=== PATIENT | male | born 1950 | race Caucasian/White ===

== ENCOUNTER 2020-07-19 17:00 | Inpatient (IN) ==
[2020-07-19] MEDS ORDERED: guaiFENesin 600 MG TABCR PO STA (17:15)
[2020-07-19] MEDS ORDERED: SODIUM CHLORIDE 0.9% 500 ML IV ONE (17:15)
[2020-07-19] MEDS ORDERED: methylPREDNISolone 125 MG/2 ML VIAL IV STA (17:15)
[2020-07-19] MEDS ORDERED: ALBUT/IPRATROP 3MG/0.5MG NEB 3 ML VIAL NEB ONE (17:16)
--- NOTE | 2020-07-19 17:31 | XRay Report ---
XR chest 1V portable CLINICAL HISTORY: Atypical chest pain COMPARISON STUDY: No previous studies for comparison. FINDINGS: The patient appears hyperinflated. The heart is the upper limits of normal in size. There i s no overt failure. There are no significant pleural effusions. There is no lobar consolidation.[ IMPRESSION: Hyperinflation. No evidence of focal pulmonary consolidation. ACT 112: Negative or not required by law. Electronically signed by: Samuel Jacinto M.D. 07/19/2020 5:30 PM
[2020-07-19 17:57] LABS: Basophils # (auto) 0.01 K/uL (0-0.2); Basophils % (auto) 0.1 %; Eosinophils # (auto) 0.38 K/uL (0-0.5); Eosinophils % (auto) 4.2 %; Hematocrit (blood only) 46.9 % (42-52); Hemoglobin 16.3 g/dL (14.0-18.0); Immature Granulocytes # (auto) 0.04 K/uL (0.00-0.02); Immature Granulocytes % (auto) 0.4 %; Lymphocytes # (auto) 1.63 K/uL (1.2-3.4); Mean Corpuscular Hemoglobin 31.8 pg (25-34); Mean Corpuscular Hgb Conc 34.8 g/dL (32-36); Mean Corpuscular Volume 91.6 fL (80-100); Mean Platelet Volume 9.3 fL (7.4-10.4); Monocytes # (auto) 0.78 K/uL (0.11-0.59); Monocytes % (auto) 8.6 %; Neutrophils # (auto) 6.22 K/uL (1.4-6.5); Neutrophils % (auto) 68.7 %; Platelet Count 309 K/uL (130-400); RDW Standard Deviation 47.5 fL (36.4-46.3); Red Blood Count 5.12 M/uL (4.7-6.1); White Blood Count 9.06 K/uL (4.8-10.8)
[2020-07-19 18:15] LABS: Alanine Aminotransferase 40 U/L (12-78); Aspartate Aminotransferase 22 U/L (15-37); BUN Creatinine Ratio 18.7 (10-20); Bilirubin Direct 0.1 mg/dl (0-0.2); Blood Urea Nitrogen 20 mg/dl (7-18); Calcium 8.6 mg/dl (8.5-10.1); Carbon Dioxide 31 mmol/L (21-32); Chloride 106 mmol/L (98-107); Est GFR (African American) 83.8; Est GFR (Non-African American) 72.3; Glucose 102 mg/dl (70-99); Lipase 78 U/L (73-393); Magnesium 2.2 mg/dl (1.8-2.4); Potassium 4.1 mmol/L (3.5-5.1); Sodium 139 mmol/L (136-145)
[2020-07-19 18:18] LABS: Alkaline Phosphatase 78 U/L (45-117); Bilirubin,Total 0.5 mg/dl (0.2-1); NT Pro B Type Natriuretic Pept 15 pg/ml (0-900); Phosphorus 2.8 mg/dl (2.5-4.9); Troponin I < 0.015 ng/ml (0-0.045)
[2020-07-19 18:36] LABS: Influenza A virus by PCR Negative (Neg); Influenza B virus by PCR Negative (Neg); RSV by PCR Negative (Neg); SARS CoV2 RNA(COVID-19) InHosp NEGATIVE (Negative)
--- NOTE | 2020-07-19 19:01 | Emergency Department Note ---
Impression & Plan Acute respiratory failure with hypoxia, COPD exacerbation, Current every day smoker ED Provider Note NAME: MILDRED STRONG AGE: 69 SEX: M ARRIVES VIA: Walk-In INFORMANT: Patient, ED PROVIDER(S): Oh Cordon MD CHIEF COMPLAINT: Shortness of breath PLAN: Disposition: Admit MEDICAL DECISION MAKING: The patient is a pleasant 69-year gentleman with a past medical history of longstanding daily smoking but admits to not following with a primary care doctor and many years who presents to the emergency department with worsening cough, congestion and shortness of breath over the past couple weeks acutely worse over the past couple of days in the setting of his report of having worsening respiratory symptoms over the past 2 years. He did not seek medical evaluation during this time presuming it was due to his smoking as well as his environmental exposures at work. He denies any known fevers, nausea, vomiting, diarrhea or symptoms. Denies any known COVID-19 exposures. On arrival the patient is in mild respiratory distress and tachypneic hypoxic in the low 80s on room air which did improve to mid 90s on 4 L nasal cannula with improved work of breathing. He appears clinically dry. EKG without overt acute ischemia. CXR negative with hyperinflation without overt infiltrates. WBC, H/H, platelets wnl. Chemistry without acidosis. Electrolytes unremarkable. LFTs without significant abnormality. Troponin negative/undetectable. BNP wnl. Covid-19 PCR negative. Influenza and RSV PC also negative. Upon re-evaluation the patient continued to feel improved with improved air movement after treatment with IVF hydration, steroids, duoneb, guaifenesin. However, still with diffuse wheezes and so given severe COPD exacerbation he agreed with plan for admission. Case was discussed with Dr. Biswas, [facility] hospitalist, who will evaluate the patient for admission. Triage Nursing notes reviewed and agree them. Prior medical records reviewed Vital Signs: reviewed and remarkable for no significant abnormalities Differential diagnosis: Reactive airway disease, pneumonia, pneumothorax, COPD, CHF, infections, cardiac ischemia, pulmonary embolism, musculoskeletal, gastrointestinal, as well as other pathologies. ER treatment provided: See below. Diagnostics interpreted by me: ECG: NSR, 82 bpm, no ectopy, no overt ST elevation or depression. Cardiac Monitoring: An order for continuous cardiac monitoring was placed and demonstrated NSR, 82 bpm, no ectopy. Laboratory studies: See below Imaging studies: See below Consultation(s): Case was discussed with Dr. Biswas, [facility] hospitalist, who will evaluate the patient for admission. HPI: The patient is a pleasant 69-year gentleman with a past medical history of longstanding daily smoking but admits to not following with a primary care doctor and many years who presents to the emergency department with worsening cough, congestion and shortness of breath over the past couple weeks acutely worse over the past couple of days in the setting of his report of having worsening respiratory symptoms over the past 2 years. He did not seek medical evaluation during this time presuming it was due to his smoking as well as his environmental exposures at work. He denies any known fevers, nausea, vomiting, diarrhea or symptoms. Denies any known COVID-19 exposures. ROS: See above HPI for pertinent positives & negatives. A total of 10 systems reviewed and were otherwise negative. PAST MEDICAL HISTORY:See Below PAST SURGICAL HISTORY:See Below FAMILY HISTORY:See Below SOCIAL HISTORY:See Below HOME MEDICATIONS:See Below ALLERGIES:See Below VITALS:See Below PHYSICAL EXAMINATION: GENERAL: Awake, alert, uncomfortable-appearing, in no distress HENT: Normocephalic, atraumatic. Oropharynx with dry mucous membranes and otherwise unremarkable. EYES: Normal conjunctiva. Sclera non-icteric. NECK: Supple. No nuchal rigidity. FROM. No JVD. RESPIRATORY: Diffuse wheezes with prolonged expiratory phase. Mild respiratory distress with increased work of breathing. CARDIAC: Regular rate, normal rhythm. Extremities warm and well perfused. Pulses equal. ABDOMEN: Soft, non-distended. No tenderness to palpation. No rebound or guarding. No masses. RECTAL: Deferred. MUSCULOSKELETAL: Chest examination reveals no tenderness. The back is symmetrical on inspection without obvious abnormality. There is no CVA tenderness to palpation. No joint edema. LOWER EXTREMITIES: Calves are equal size bilaterally and non-tender. No edema. No discoloration. NEURO: Normal sensorium. No sensory or motor deficits noted. SKIN: No rash or jaundice noted. ED COURSE: Critical Care: I have personally spent greater than 45 minutes of critical care time in the direct management of this patient. This includes bedside care, interpretation of diagnostic studies, and testing, discussion with consultants, patient, and family members, and other required patient management activities. This 45 minutes is in excess of all separately billable procedures. Oh Cordon MD Past Med/Surg History Medical History Current every day smoker Social History Smoking Status: Current every day smoker Tobacco Type: Cigarettes Hx Alcohol Use: No Hx Substance Use: No Preferred Language: Greek Communication Ability: Effective Beliefs That Will Affect Care: None Current Living Situation: Spouse Current Living Situation Comment: lives in one story home Feels Safe at Home: Yes Safety Concerns: Feels Safe At This Time Assistive Devices: Oxygen - Continuous Allergies Allergies Allergy/AdvReac Type Severity Reaction Status Date / Time No Known Allergies Allergy Verified 07/19/20 17:58 Home Meds Home Medications Medication Instructions Recorded Confirmed albuterol sulfate 2.5 mg INHALATION DIRECTED PRN 07/19/20 07/19/20 epinephrine [Primatene Mist] 1 puff INHALATION DIRECTED PRN 07/19/20 07/19/20 fluticasone propionate [Flonase] 1 spray INTRANASAL DAILY 07/19/20 07/19/20 guaifenesin [Mucinex] 600 mg PO DIRECTED PRN 07/19/20 07/19/20 levocetirizine [Xyzal] 5 mg PO DAILY 07/19/20 07/19/20 Results & Data (ED) Vital Signs Vital Signs - 24 hr 07/19/20 17:00 07/19/20 17:01 07/19/20 17:14 Temperature 36.8 C Temperature Source Temporal Artery Scan Pulse Rate 89 63 Pulse Rate [Apical] Pulse Rate from SpO2 Sensor Respiratory Rate 27 H 20 Respiratory Effort / Characteristics Short of Breath Grunting Short of Breath Respiratory Depth Normal Respiratory Pattern Regular Blood Pressure Blood Pressure Mean Pulse Oximetry 91 83 L 97 Oxygen Delivery Method Nasal Cannula Room Air Nasal Cannula Oxygen Flow Rate 2 4 Sepsis Recent Fever Within 48 Hours No Sepsis New/Unexplained Change in Mental Status No Sepsis Action Taken by Nursing No Action Required Oxygen Flow Rate - Titration 4 Pulse Oximetry Post Tiitration 95 07/19/20 17:30 07/19/20 17:51 07/19/20 17:54 Temperature Temperature Source Pulse Rate 84 81 Pulse Rate [Apical] 84 Pulse Rate from SpO2 Sensor 84 83 Respiratory Rate 20 20 19 Respiratory Effort / Characteristics Spontaneous Respiratory Depth Respiratory Pattern Blood Pressure 160/109 H Blood Pressure Mean 126 Pulse Oximetry 98 98 98 Oxygen Delivery Method Nasal Cannula Oxygen Flow Rate 4 Sepsis Recent Fever Within 48 Hours Sepsis New/Unexplained Change in Mental Status Sepsis Action Taken by Nursing Oxygen Flow Rate - Titration Pulse Oximetry Post Tiitration 07/19/20 18:00 07/19/20 18:09 07/19/20 18:10 Temperature Temperature Source Pulse Rate 83 79 82 Pulse Rate [Apical] Pulse Rate from SpO2 Sensor 84 81 82 Respiratory Rate 16 13 11 L Respiratory Effort / Characteristics Respiratory Depth Respiratory Pattern Blood Pressure 149/99 H Blood Pressure Mean 115 Pulse Oximetry 98 98 98 Oxygen Delivery Method Oxygen Flow Rate Sepsis Recent Fever Within 48 Hours Sepsis New/Unexplained Change in Mental Status Sepsis Action Taken by Nursing Oxygen Flow Rate - Titration Pulse Oximetry Post Tiitration 07/19/20 18:30 07/19/20 18:31 07/19/20 19:00 Temperature Temperature Source Pulse Rate 82 85 79 Pulse Rate [Apical] Pulse Rate from SpO2 Sensor 81 83 79 Respiratory Rate 11 L 13 19 Respiratory Effort / Characteristics Respiratory Depth Respiratory Pattern Blood Pressure 131/84 131/83 Blood Pressure Mean 99 99 Pulse Oximetry 97 96 96 Oxygen Delivery Method Oxygen Flow Rate Sepsis Recent Fever Within 48 Hours Sepsis New/Unexplained Change in Mental Status Sepsis Action Taken by Nursing Oxygen Flow Rate - Titration Pulse Oximetry Post Tiitration 07/19/20 19:01 07/19/20 19:30 07/19/20 19:31 Temperature Temperature Source Pulse Rate 84 78 78 Pulse Rate [Apical] Pulse Rate from SpO2 Sensor 85 78 78 Respiratory Rate 18 15 18 Respiratory Effort / Characteristics Respiratory Depth Respiratory Pattern Blood Pressure 143/89 H Blood Pressure Mean 107 Pulse Oximetry 97 96 96 Oxygen Delivery Method Oxygen Flow Rate Sepsis Recent Fever Within 48 Hours Sepsis New/Unexplained Change in Mental Status Sepsis Action Taken by Nursing Oxygen Flow Rate - Titration Pulse Oximetry Post Tiitration 07/19/20 20:00 07/19/20 20:01 07/19/20 20:30 Temperature Temperature Source Pulse Rate 80 81 81 Pulse Rate [Apical] Pulse Rate from SpO2 Sensor 81 80 79 Respiratory Rate 17 16 17 Respiratory Effort / Characteristics Respiratory Depth Respiratory Pattern Blood Pressure 136/84 137/85 Blood Pressure Mean 101 102 Pulse Oximetry 96 96 97 Oxygen Delivery Method Oxygen Flow Rate Sepsis Recent Fever Within 48 Hours Sepsis New/Unexplained Change in Mental Status Sepsis Action Taken by Nursing Oxygen Flow Rate - Titration Pulse Oximetry Post Tiitration 07/19/20 20:31 Temperature Temperature Source Pulse Rate 76 Pulse Rate [Apical] Pulse Rate from SpO2 Sensor 76 Respiratory Rate 14 Respiratory Effort / Characteristics Respiratory Depth Respiratory Pattern Blood Pressure Blood Pressure Mean Pulse Oximetry 97 Oxygen Delivery Method Oxygen Flow Rate Sepsis Recent Fever Within 48 Hours Sepsis New/Unexplained Change in Mental Status Sepsis Action Taken by Nursing Oxygen Flow Rate - Titration Pulse Oximetry Post Tiitration Laboratory Data Attestation: I reviewed the patient's lab results. Result diagrams: 07/19/20 17:29 07/19/20 17:29 Lab Results 07/19/20 07/19/20 07/19/20 Range/Units 17:29 17:29 17:45 WBC 9.06 (4.8-10.8) K/uL RBC 5.12 (4.7-6.1) M/uL Hgb 16.3 (14.0-18.0) g/dL Hct 46.9 (42-52) % MCV 91.6 (80-100) fL MCH 31.8 (25-34) pg MCHC 34.8 (32-36) g/dL RDW Std Deviation 47.5 H (36.4-46.3) fL RDW Coeff of Lai 14.0 (11.5-14.5) % Plt Count 309 (130-400) K/uL MPV 9.3 (7.4-10.4) fL Immature Gran % (Auto) 0.4 % Neut % (Auto) 68.7 % Lymph % (Auto) 18.0 % Coleman % (Auto) 8.6 % Eos % (Auto) 4.2 % Baso % (Auto) 0.1 % Neut # (Auto) 6.22 (1.4-6.5) K/uL Lymph # (Auto) 1.63 (1.2-3.4) K/uL Coleman # (Auto) 0.78 H (0.11-0.59) K/uL Eos # (Auto) 0.38 (0-0.5) K/uL Baso # (Auto) 0.01 (0-0.2) K/uL Immature Gran # (Auto) 0.04 H (0.00-0.02) K/uL Sodium 139 (136-145) mmol/L Potassium 4.1 (3.5-5.1) mmol/L Chloride 106 (98-107) mmol/L Carbon Dioxide 31 (21-32) mmol/L Anion Gap 2.0 L (3-11) BUN 20 H (7-18) mg/dl Creatinine 1.06 (0.6-1.4) mg/dl Est Cr Clr Drug Dosing Not Reportable Est GFR ( Amer) 83.8 Est GFR (Non-Af Amer) 72.3 BUN/Creatinine Ratio 18.7 (10-20) Glucose 102 H (70-99) mg/dl Calcium 8.6 (8.5-10.1) mg/dl Phosphorus 2.8 (2.5-4.9) mg/dl Magnesium 2.2 (1.8-2.4) mg/dl Total Bilirubin 0.5 (0.2-1) mg/dl Direct Bilirubin 0.1 (0-0.2) mg/dl AST 22 (15-37) U/L ALT 40 (12-78) U/L Alkaline Phosphatase 78 (45-117) U/L Troponin I < 0.015 (0-0.045) ng/ml NT-Pro-B Natriuret Pep 15 (0-900) pg/ml Total Protein 8.0 (6.4-8.2) gm/dl Albumin 4.0 (3.4-5.0) gm/dl Globulin 4.0 (2.5-4.0) gm/dl Albumin/Globulin Ratio 1.0 (0.9-2) Lipase 78 (73-393) U/L COVID-19 Eval Order CovFluRsv at [facility] SARS-CoV-2 (PCR) (Negative) Influenza Type A (PCR) (Neg) Influenza Type B (PCR) (Neg) RSV (RT-PCR) (Neg) 07/19/20 Range/Units 17:45 WBC (4.8-10.8) K/uL RBC (4.7-6.1) M/uL Hgb (14.0-18.0) g/dL Hct (42-52) % MCV (80-100) fL MCH (25-34) pg MCHC (32-36) g/dL RDW Std Deviation (36.4-46.3) fL RDW Coeff of Lai (11.5-14.5) % Plt Count (130-400) K/uL MPV (7.4-10.4) fL Immature Gran % (Auto) % Neut % (Auto) % Lymph % (Auto) % Coleman % (Auto) % Eos % (Auto) % Baso % (Auto) % Neut # (Auto) (1.4-6.5) K/uL Lymph # (Auto) (1.2-3.4) K/uL Coleman # (Auto) (0.11-0.59) K/uL Eos # (Auto) (0-0.5) K/uL Baso # (Auto) (0-0.2) K/uL Immature Gran # (Auto) (0.00-0.02) K/uL Sodium (136-145) mmol/L Potassium (3.5-5.1) mmol/L Chloride (98-107) mmol/L Carbon Dioxide (21-32) mmol/L Anion Gap (3-11) BUN (7-18) mg/dl Creatinine (0.6-1.4) mg/dl Est Cr Clr Drug Dosing Est GFR ( Amer) Est GFR (Non-Af Amer) BUN/Creatinine Ratio (10-20) Glucose (70-99) mg/dl Calcium (8.5-10.1) mg/dl Phosphorus (2.5-4.9) mg/dl Magnesium (1.8-2.4) mg/dl Total Bilirubin (0.2-1) mg/dl Direct Bilirubin (0-0.2) mg/dl AST (15-37) U/L ALT (12-78) U/L Alkaline Phosphatase (45-117) U/L Troponin I (0-0.045) ng/ml NT-Pro-B Natriuret Pep (0-900) pg/ml Total Protein (6.4-8.2) gm/dl Albumin (3.4-5.0) gm/dl Globulin (2.5-4.0) gm/dl Albumin/Globulin Ratio (0.9-2) Lipase (73-393) U/L COVID-19 Eval Order SARS-CoV-2 (PCR) NEGATIVE (Negative) Influenza Type A (PCR) Negative (Neg) Influenza Type B (PCR) Negative (Neg) RSV (RT-PCR) Negative (Neg) Administered Medications Nicotine (Nicotine 21 Mg/24 Hr Tdsy) 21 mg TD DAILY ELTON Stop: 08/18/20 23:09 Last Admin: 07/19/20 23:42 Dose: 21 mg Documented by: [id number] Discontinued Medications Albuterol (Albut/Ipratrop 3mg/0.5mg Neb 3 Ml Vial) 12 ml NEB ONE ONE Stop: 07/19/20 17:17 Last Admin: 07/19/20 17:50 Dose: 12 ml Documented by: [id number] Guaifenesin (Guaifenesin 600 Mg Tabcr) 600 mg PO NOW STA Stop: 07/19/20 17:16 Last Admin: 07/19/20 19:12 Dose: 600 mg Documented by: [id number] Sodium Chloride (Nss) 500 mls @ 999 mls/hr IV .Q31M ONE Stop: 07/19/20 17:45 Last Infusion: 07/19/20 19:44 Dose: 0 mls/hr Documented by: [id number] Admin: 07/19/20 19:13 Dose: 999 mls/hr Documented by: [id number] Doxycycline Hyclate 100 mg/ (Dextrose) 110 mls @ 50 mls/hr IV NOW STA Stop: 07/19/20 21:41 Last Infusion: 07/19/20 22:37 Dose: 0 mls/hr Documented by: [id number] Admin: 07/19/20 20:14 Dose: 50 mls/hr Documented by: [id number] Methylprednisolone (Methylprednisolone 125 Mg/2 Ml Vial) 125 mg IV NOW STA Stop: 07/19/20 17:16 Last Admin: 07/19/20 19:12 Dose: 125 mg Documented by: [id number] Imaging Data Radiologist's Impression: Chest X-Ray 07/19/20 17:14 XR chest 1V portable CLINICAL HISTORY: Atypical chest pain COMPARISON STUDY: No previous studies for comparison. FINDINGS: The patient appears hyperinflated. The heart is the upper limits of normal in size. There is no overt failure. There are no significant pleural effusions. There is no lobar consolidation.[ IMPRESSION: Hyperinflation. No evidence of focal pulmonary consolidation. ACT 112: Negative or not required by law. Electronically signed by: Samuel Jacinto M.D. 07/19/2020 5:30 PM Discharge Plan Visit Data Chief Complaint: Shortness of Breath/Dyspnea Stated Complaint: [id number] ED Provider: Oh Cordon Discharge Problem: Acute respiratory failure with hypoxia, COPD exacerbation, Current every day smoker Patient Disposition: Admitted As Inpatient Discharge Instructions Interventions: ED Discharge Assessment Last Done: 07/19/20 22:00
[2020-07-19] MEDS ORDERED: DOXYCYCLINE HYCLATE 100 MG in DEXTROSE 5% 100 ML IV STA (19:30)
[2020-07-19] MEDS ORDERED: NITROGLYCERIN SL 0.4 MG/TAB TAB SL PRN (22:37)
[2020-07-19] MEDS ORDERED: guaiFENesin/CODEINE 100MG/10MG 5ML UDC PO PRN (22:37)
[2020-07-19] MEDS ORDERED: ALBUT/IPRATROP 3MG/0.5MG NEB 3 ML VIAL NEB PRN (22:37)
[2020-07-19] MEDS ORDERED: ACETAMINOPHEN 325 MG TAB PO PRN (22:37)
[2020-07-19] MEDS ORDERED: POLYETHYLENE (MIRALAX) 17 GM PACK PO PRN (22:37)
--- NOTE | 2020-07-19 23:25 | History and Physical Report ---
DATE OF ADMISSION: 07/19/2020 CHIEF COMPLAINT: Shortness of breath and cough. HISTORY OF PRESENT ILLNESS: A 69-year-old male with no significant past medical history, did not go to doctors for the last 40 years as per the patient, who just had a teleconference with physician for his shortness of breath in last January and at that time he was prescribed prednisone and antibiotic, now comes because of shortness of breath, cough going on for the last 2-3 weeks. The patient states since last 2-3 years, he is having trouble with his breathing. 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 He also smokes 1 pack of cigarettes a day for the last 40 years. The cough and shortness of breath got worse since last 2-3 weeks and was feeling very short of breath, coughing, bringing up some whitish phlegm. Denies any fever, chills. Has some chest tightness. No headache, no blurred vision, no earache. Had some runny nose from his sinuses. No sore throat, no loss of sense of smell or taste. Appetite is okay. No dysphagia, no nausea, no abdominal pain, no diarrhea or constipation, no blood in stools or black stools. Normal bladder movements. No hematuria. No rash. He was saturating 83% when he came in, currently saturating at 98% on 4 liters. His is in the room and says for the last several days he is using his 's inhalers and nebs at home. ALLERGIES: No known drug allergies. PAST MEDICAL HISTORY: None as per patient. PAST SURGICAL HISTORY: None. MEDICATIONS: Only [id number] medications. Currently using his 's inhalers and nebs. FAMILY HISTORY: Mother has diabetes and heart failure. SOCIAL HISTORY: , smokes 1 pack a day for more than 40 years. Denies alcohol use, denies any drug use. REVIEW OF SYMPTOMS: As per HPI. Rest of review of systems negative. PHYSICAL EXAMINATION: GENERAL: The patient is obese, not in acute distress. VITAL SIGNS: Temperature 36.8, pulse 79, respiratory rate 13, blood pressure 114/99, oxygen 98% on 4 liters, was 83% on room air. HEENT: No pallor, no icterus. Oral mucosa somewhat dry. NECK: No JVD. No neck masses. CARDIOVASCULAR: S1, S2 heard, irregular rate and rhythm, no murmur, no gallop. RESPIRATORY SYSTEM: Normal AP diameter. No accessory muscle use. Diminished breath sounds. No wheezing, no crackles. ABDOMEN: Soft, bowel sounds present, nontender. No distention. CENTRAL NERVOUS SYSTEM: Cranial nerves II-XII grossly intact. Nonfocal. EXTREMITIES: Mild pedal edema present, no erythema seen. LABORATORY DATA: WBC 9, hemoglobin 15.3, hematocrit 40.9, platelets 309. Sodium 139, potassium 4.1, chloride 106, bicarbonate 31, BUN 20, creatinine 1.06, serum glucose 102, calcium 8.6, phosphorus 2.8, magnesium 2.2, total bilirubin 0.5, direct bilirubin 0.1, AST 22, ALT 40, alkaline phosphatase 78. Troponin I less than 0.015. BNP 15. Lipase 78. SARS-CoV-2 PCR negative. Influenza A and B PCR negative, RSV PCR negative. IMAGING: Chest x-ray, no acute findings, hyperinflation. EKG: Normal sinus rhythm, rate of 82, no acute ST changes seen. ASSESSMENT AND PLAN: This is a 69-year-old male who presents with ongoing shortness of breath, got worse since last few days. 1. Copd exacerbation. Hypoxia. ongoing smoking. Received steroids and doxycycline, nebs in the ER, continue with IV Solu-Medrol 40 t.i.d., DuoNebs around the clock and p.r.n., p.o. doxycycline. Monitor in the med tele. Two step home oxygen prior to discharge. Follow up with family doctor or Pulmonary. 2. Chest tightness, possibly from chronic obstructive pulmonary disease flare, Troponin and , EKG unremarkable. Follow the repeat EKG, repeat troponins, and also follow echocardiogram . Monitor in the med/tele 3. lower extremity edema mild. Follow echo. Will also check lipid profile and HbA1c levels and a.m. labs. 4. Tobacco abuse, needs counseling. 5. Deep venous thrombosis prophylaxis, Lovenox. DISPOSITION: Admit to med tele. Expect discharge home and follow with family doctor. PT and OT prior to discharge. visitor services assistant to help with discharge planning. [place]
[2020-07-19] MEDS ORDERED: PNEUMOCOCCAL ADMINISTRATION CHARGE ONE (23:26)
[2020-07-19] MEDS ORDERED: INFLUENZA ADMINISTRATION CHARGE ONE (23:26)
[2020-07-19] MEDS ORDERED: INFLUENZA VACCINE HIGH DOSE 65+ 0.7 ML SYR IM ONE (23:26)
[2020-07-19] MEDS ORDERED: PNEUMOCOCCAL POLYSACCHARIDES 25 MCG/0.5 ML VIAL/SYR IM ONE (23:26)
[2020-07-19] MEDS: NICOTINE 21 MG/24 HR TDSY TD SCH (23:42)
[2020-07-20 06:25] LABS: Hematocrit (blood only) 44.7 % (42-52); Hemoglobin 15.6 g/dL (14.0-18.0); Immature Granulocytes # (auto) 0.04 K/uL (0.00-0.02); Immature Granulocytes % (auto) 0.5 %; Lymphocytes # (auto) 0.74 K/uL (1.2-3.4); Lymphocytes % (auto) 8.8 %; Mean Corpuscular Hemoglobin 31.7 pg (25-34); Mean Corpuscular Hgb Conc 34.9 g/dL (32-36); Mean Corpuscular Volume 90.9 fL (80-100); Mean Platelet Volume 9.6 fL (7.4-10.4); Monocytes # (auto) 0.14 K/uL (0.11-0.59); Monocytes % (auto) 1.7 %; Neutrophils # (auto) 7.47 K/uL (1.4-6.5); Platelet Count 301 K/uL (130-400); RDW Coefficient of Variation 13.9 % (11.5-14.5); RDW Standard Deviation 46.7 fL (36.4-46.3); Red Blood Count 4.92 M/uL (4.7-6.1); White Blood Count 8.39 K/uL (4.8-10.8)
[2020-07-20 06:33] LABS: Prothrombin Time 10.6 Seconds (9.0-12.0)
[2020-07-20 06:45] LABS: BUN Creatinine Ratio 19.6 (10-20); Blood Urea Nitrogen 19 mg/dl (7-18); Calcium 8.7 mg/dl (8.5-10.1); Carbon Dioxide 25 mmol/L (21-32); Chloride 104 mmol/L (98-107); Cholesterol 256 mg/dl (0-200); Creatinine Clr Calc Pharmacy 84.6 ml/min; Est GFR (African American) 94.4; Est GFR (Non-African American) 81.5; Glucose 141 mg/dl (70-99); Magnesium 2.2 mg/dl (1.8-2.4); Potassium 4.1 mmol/L (3.5-5.1); Sodium 136 mmol/L (136-145); Triglycerides 62 mg/dl (0-150); VLDL Cholesterol 12 mg/dl
[2020-07-20 06:49] LABS: Chol HDL Ratio 5; HDL Cholesterol 47 mg/dl; LDL Cholesterol Calculated 197 mg/dl; Troponin I < 0.015 ng/ml (0-0.045)
[2020-07-20] MEDS: ALBUT/IPRATROP 3MG/0.5MG NEB 3 ML VIAL NEB SCH ×4 (07:13→19:23)
[2020-07-20] MEDS ORDERED: PERFLUTREN LIPID MICROSPHERE (DEFINITY) IV ONE (07:57)
[2020-07-20] MEDS: methylPREDNISolone 40 MG in SYRINGE 0 ML IV SCH ×3 (08:33→21:08)
[2020-07-20] MEDS: NICOTINE 21 MG/24 HR TDSY TD SCH (08:33)
[2020-07-20] MEDS: DOXYCYCLINE HYCLATE 100 MG CAP PO SCH ×2 (08:33→21:07)
[2020-07-20] MEDS: ENOXAPARIN INJ 40 MG/0.4 ML SYR SQ SCH (08:33)
[2020-07-20] MEDS ORDERED: COUGH DROP (SUGAR FREE) LOZ 24 LOZ/1 BOX BUCCAL ONE (08:45)
--- NOTE | 2020-07-20 21:55 | Electrocardiogram Report ---
Test Reason : Blood Pressure : / mmHG Vent. Rate : 082 BPM Atrial Rate : 082 BPM P-R Int : 160 ms QRS Dur : 080 ms QT Int : 376 ms P-R-T Axes : 077 064 053 degrees QTc Int : 439 ms Poor data quality, interpretation may be adversely affected Normal sinus rhythm Normal ECG No previous ECGs available Confirmed by Don Smith ([id number]) on 07/20/2020 9:54:57 PM Referred By: REFERRED SELF Confirmed By:Don Smith
--- NOTE | 2020-07-20 22:50 | Electrocardiogram Report ---
Test Reason : Blood Pressure : / mmHG Vent. Rate : 092 BPM Atrial Rate : 092 BPM P-R Int : 178 ms QRS Dur : 080 ms QT Int : 358 ms P-R-T Axes : 073 041 057 degrees QTc Int : 442 ms Normal sinus rhythm Anterior infarct , age undetermined Abnormal ECG When compared with ECG of 19-JUL-2020 17:24, (unconfirmed) No significant change was found Confirmed by Don Smith ([id number]) on 07/20/2020 10:50:26 PM Referred By: REFERRED SELF Confirmed By:Don Smith
[2020-07-21 06:56] LABS: Estimated Average Glucose 126 mg/dl
[2020-07-21] MEDS: ALBUT/IPRATROP 3MG/0.5MG NEB 3 ML VIAL NEB SCH ×4 (07:37→19:14)
--- NOTE | 2020-07-21 07:59 | Hospitalist Progress Note ---
Date of Service July 20, 2020 Assessment & Plan (1) Acute respiratory failure with hypoxia: (2) COPD exacerbation: (3) Current every day smoker: This is a 69-year-old male who presents with ongoing shortness of breath, got worse since last few days. 1. COPD exacerbation. Hypoxia. ongoing smoking. Received steroids and doxycycline, nebs in the ER, continue with IV Solu-Medrol 40 t.i.d., DuoNebs around the clock and p.r.n., p.o. doxycycline. Monitor in the med tele. Two step home oxygen prior to discharge. Follow up with family doctor and Pulmonary. Patient will need PFTs as outpt. 2. Chest tightness, possibly from chronic obstructive pulmonary disease flare, EKG unremarkable. repeat EKG -normal sinus rhythm, anterior infarct, age undetermined, no change from previous. Troponins - negative Echocardiogram obtained -no significant valvular pathology. Left ventricle is normal in size. Left ventricular systolic function is normal. EF 50 to 55%. LV wall motion is normal. RV systolic function is normal. Left atrial size is normal. Right atrial size is normal. Monitor in the med/tele 3. lower extremity edema mild. Follow echo. Will also check lipid profile and HbA1c levels and a.m. labs. 4. Tobacco abuse, needs counseling. DVT ppx:Lovenox. DISPOSITION: telemetry Expect discharge home and follow with family doctor. PT and OT prior to discharge. customer technical services manager to help with discharge planning. Admission and Anticipated Discharge Date Admission Date: July 19, 2020 Subjective Patient seen in follow-up of hypoxia, patient is still on 3 L of oxygen, likely secondary to COPD Currently he says he feels better and breathing better Reports he was using inhalers of his , when he was at home He does not follow much with physicians Denies fevers, chills, chest pain, abdominal pain nausea or vomiting Review of Systems Review of Systems: All systems reviewed & are unremarkable except as noted in HPI & below Constitutional: no fever and no chills Respiratory: + cough and + dyspnea (improved) Cardiovascular: no chest pain and no palpitations Gastrointestinal: no abdominal pain, no nausea and no vomiting Physical Exam Physical Exam: GENERAL: The patient is obese, not in acute distress. HEENT: NC/AT, No pallor, no icterus. Oral mucosa somewhat dry. NECK: No JVD. No neck masses. CARDIOVASCULAR: S1, S2 heard, irregular rate and rhythm, no murmur, no gallop. RESPIRATORY: Normal AP diameter. No accessory muscle use. on 3L of NC, +loud diffuse wheezes, no crackles ABDOMEN: Soft, bowel sounds present, obese, nontender. No distention. NEURO: Alert and oriented x3, no facial asymmetry, speech fluent, moves all 4 extremities EXTREMITIES: Mild pedal edema present, no erythema seen. SKIN: warm, dry, no rashes Results & Data Results & Data ([facility]) Vital Signs (Past 12 Hours) Vital Signs Temp Pulse Pulse Resp BP Pulse Ox 07/21/20 00:34 88 07/20/20 23:11 36.4 C L 92 H 18 152/95 H 94
--- NOTE | 2020-07-21 08:02 | Hospitalist Progress Note ---
Date of Service July 21, 2020 Assessment & Plan (1) Acute respiratory failure with hypoxia: (2) COPD exacerbation: (3) Current every day smoker: This is a 69-year-old male who presents with ongoing shortness of breath, got worse since last few days. 1. COPD exacerbation. Hypoxia. ongoing smoking. Received steroids and doxycycline, nebs in the ER, continued with IV Solu-Medrol 40 t.i.d.,will decrease to BID DuoNebs around the clock and p.r.n., p.o. doxycycline. Monitor in the med tele. Two step home oxygen prior to discharge. Follow up with family doctor and Pulmonary. Patient will need PFTs as outpt. Allergic rhinitis -Patient reports rhinorrhea, and also watery eyes - reports hx of allergies, at home uses flonase -We will provide Zyrtec, Flonase - cont. to monitor 2. Chest tightness, possibly from chronic obstructive pulmonary disease flare, EKG unremarkable. repeat EKG -normal sinus rhythm, anterior infarct, age undetermined, no change from previous. Troponins - negative Echocardiogram obtained -no significant valvular pathology. Left ventricle is normal in size. Left ventricular systolic function is normal. EF 50 to 55%. LV wall motion is normal. RV systolic function is normal. Left atrial size is normal. Right atrial size is normal. Monitor in the med/tele Now resolved 3. Lower extremity edema mild. echo as above Will also check lipid profile and HbA1c levels and a.m. labs. lipid panel - total cholesterol 256, LDL 197, HDL 47, triglycerides 62 Hemoglobin A1c, 6.0% 4. Tobacco abuse, needs counseling. DVT ppx:Lovenox. DISPOSITION: telemetry Expect discharge home and follow with family doctor. PT and OT prior to discharge. conference services manager to help with discharge planning. Admission and Anticipated Discharge Date Admission Date: July 19, 2020 Subjective Patient seen in follow-up of hypoxia, patient is now on 2Ldown from 3 L of oxygen, likely secondary to COPD Currently he says he feels better and breathing better However says his allergies are bothering him, has rhinorrhea and also his eyes are watery, reports that he gets coughing spells from drainage to his throat and then he feels short of breath Reports he was using inhalers of his , when he was at home He does not follow much with physicians Denies fevers, chills, chest pain, abdominal pain nausea or vomiting Review of Systems Review of Systems: All systems reviewed & are unremarkable except as noted in HPI & below Constitutional: no fever and no chills Respiratory: + cough and + dyspnea (improved) Cardiovascular: no chest pain and no palpitations Gastrointestinal: no abdominal pain, no nausea and no vomiting Physical Exam Physical Exam: GENERAL: The patient is obese, not in acute distress. HEENT: NC/AT, No pallor, no icterus. Oral mucosa somewhat dry. NECK: No JVD. No neck masses. CARDIOVASCULAR: S1, S2 heard, irregular rate and rhythm, no murmur, no gallop. RESPIRATORY: Normal AP diameter. No accessory muscle use. on 2L of NC, somewhat diminished breath sounds,+mild wheezing (improved), no crackles ABDOMEN: Soft, bowel sounds present, obese, nontender. No distention. NEURO: Alert and oriented x3, no facial asymmetry, speech fluent, moves all 4 extremities EXTREMITIES: Mild pedal edema present, no erythema seen. SKIN: warm, dry, no rashes Results & Data Results & Data ([facility]) Vital Signs (Past 12 Hours) Vital Signs Temp Pulse Pulse Resp BP Pulse Ox 07/21/20 08:00 36.4 C L 83 16 135/80 97 07/21/20 07:38 84 18 95 07/21/20 03:36 87 22 94 07/21/20 03:25 36.4 C L 90 20 153/85 H 90 07/21/20 00:34 88 07/20/20 23:11 36.4 C L 92 H 18 152/95 H 94 Laboratory Results 07/21/20 07/21/20 07/20/20 Range/Units 08:04 08:04 05:45 WBC 21.68 H (4.8-10.8) K/uL RBC 4.91 (4.7-6.1) M/uL Hgb 15.5 (14.0-18.0) g/dL Hct 44.9 (42-52) % MCV 91.4 (80-100) fL MCH 31.6 (25-34) pg MCHC 34.5 (32-36) g/dL RDW Std Deviation 48.5 H (36.4-46.3) fL RDW Coeff of Lai 14.4 (11.5-14.5) % Plt Count 314 (130-400) K/uL MPV 10.0 (7.4-10.4) fL Sodium 137 (136-145) mmol/L Potassium 4.3 (3.5-5.1) mmol/L Chloride 103 (98-107) mmol/L Carbon Dioxide 29 (21-32) mmol/L Anion Gap 5.0 (3-11) BUN 27 H (7-18) mg/dl Creatinine 0.99 (0.6-1.4) mg/dl Est Cr Clr Drug Dosing 80.9 ml/min Est GFR ( Amer) 91.0 Est GFR (Non-Af Amer) 78.5 BUN/Creatinine Ratio 26.8 H (10-20) Glucose 111 H (70-99) mg/dl Estimat Average Glucose 126 mg/dl Hemoglobin A1c 6.0 H (4.5-5.6) % Calcium 9.2 (8.5-10.1) mg/dl Phosphorus 3.1 (2.5-4.9) mg/dl Magnesium 2.7 H (1.8-2.4) mg/dl Specimen Hemolysis Medications Administered Current Inpatient Medications Acetaminophen (Acetaminophen 325 Mg Tab) 650 mg PO Q4H PRN PRN Reason: Pain or Fever Stop: 08/18/20 22:36 Albuterol (Albut/Ipratrop 3mg/0.5mg Neb 3 Ml Vial) 3 ml NEB QIDR [facility] Stop: 08/19/20 06:59 Last Admin: 07/21/20 07:37 Dose: 3 ml Documented by: Albuterol (Albut/Ipratrop 3mg/0.5mg Neb 3 Ml Vial) 3 ml NEB Q4R PRN PRN Reason: Shortness Of Breath Or Wheezing Stop: 08/18/20 22:36 Last Admin: 07/21/20 03:35 Dose: 3 ml Documented by: Doxycycline Hyclate (Doxycycline Hyclate 100 Mg Cap) 100 mg PO BID [facility] Stop: 07/27/20 08:59 Last Admin: 07/20/20 21:07 Dose: 100 mg Documented by: Enoxaparin Sodium (Enoxaparin Inj 40 Mg/0.4 Ml Syr) 40 mg SQ Q24H [facility] Stop: 08/19/20 08:59 Last Admin: 07/20/20 08:33 Dose: 40 mg Documented by: Guaifenesin/Codeine Phosphate (Guaifenesin/Codeine 100mg/10mg 5ml Udc) 5 ml PO Q6H PRN PRN Reason: Cough Stop: 08/18/20 22:36 Methylprednisolone 40 mg/ (Syringe) 0.64 mls @ 1.5 mls/min IV TID [facility] Stop: 08/19/20 08:59 Last Admin: 07/20/20 21:08 Dose: 1.5 mls/min Documented by: Miscellaneous (Remove Nicoderm Patch) 1 ea N/A DAILY@0806 [facility] Stop: 08/19/20 08:58 Last Admin: 07/20/20 08:43 Dose: 1 ea Documented by: Nicotine (Nicotine 21 Mg/24 Hr Tdsy) 21 mg TD DAILY [facility] Stop: 08/18/20 23:09 Last Admin: 07/20/20 08:33 Dose: 21 mg Documented by: Nitroglycerin (Nitroglycerin Sl 0.4 Mg/Tab Tab) 0.4 mg SL UD PRN PRN Reason: Chest Pain Stop: 08/18/20 22:36 Polyethylene Glycol (Polyethylene (Miralax) 17 Gm Pack) 17 gm PO DAILY PRN PRN Reason: Constipation Stop: 08/18/20 22:36
[2020-07-21] MEDS: DOXYCYCLINE HYCLATE 100 MG CAP PO SCH ×2 (08:51→20:31)
[2020-07-21] MEDS: methylPREDNISolone 40 MG in SYRINGE 0 ML IV SCH ×3 (08:51→20:31)
[2020-07-21] MEDS: ENOXAPARIN INJ 40 MG/0.4 ML SYR SQ SCH (08:52)
[2020-07-21] MEDS: NICOTINE 21 MG/24 HR TDSY TD SCH (08:52)
[2020-07-21 09:06] LABS: Hematocrit (blood only) 44.9 % (42-52); Hemoglobin 15.5 g/dL (14.0-18.0); Mean Corpuscular Hemoglobin 31.6 pg (25-34); Mean Corpuscular Hgb Conc 34.5 g/dL (32-36); Mean Corpuscular Volume 91.4 fL (80-100); Platelet Count 314 K/uL (130-400); RDW Coefficient of Variation 14.4 % (11.5-14.5); RDW Standard Deviation 48.5 fL (36.4-46.3); Red Blood Count 4.91 M/uL (4.7-6.1); White Blood Count 21.68 K/uL (4.8-10.8)
[2020-07-21 09:07] LABS: BUN Creatinine Ratio 26.8 (10-20); Calcium 9.2 mg/dl (8.5-10.1); Creatinine Clr Calc Pharmacy 80.9 ml/min; Est GFR (Non-African American) 78.5; Magnesium 2.7 mg/dl (1.8-2.4); Phosphorus 3.1 mg/dl (2.5-4.9); Potassium 4.3 mmol/L (3.5-5.1)
[2020-07-21] MEDS ORDERED: SODIUM CHLORIDE 0.65% NA SOLN 45 ML (OCEAN) ONE (12:00)
[2020-07-21] MEDS ORDERED: COUGH DROP (SUGAR FREE) LOZ 24 LOZ/1 BOX BUCCAL STA (12:05)
[2020-07-21] MEDS: FAMOTIDINE 20 MG TAB PO SCH (14:31)
[2020-07-21] MEDS: PANTOprazole 40 MG TAB PO SCH (14:31)
[2020-07-21] MEDS: CETIRIZINE HCL 10 MG TABLET PO SCH (14:31)
[2020-07-21] MEDS: FLUTICASONE PROPIONATE NA SPR 16 GM BTL NAE SCH (20:31)
[2020-07-22 06:50] LABS: Hematocrit (blood only) 47.6 % (42-52); Hemoglobin 16.1 g/dL (14.0-18.0); Mean Corpuscular Hemoglobin 30.9 pg (25-34); Mean Corpuscular Hgb Conc 33.8 g/dL (32-36); Mean Corpuscular Volume 91.4 fL (80-100); Mean Platelet Volume 9.7 fL (7.4-10.4); Platelet Count 263 K/uL (130-400); RDW Coefficient of Variation 14.4 % (11.5-14.5); RDW Standard Deviation 48.8 fL (36.4-46.3); Red Blood Count 5.21 M/uL (4.7-6.1)
[2020-07-22] MEDS: ALBUT/IPRATROP 3MG/0.5MG NEB 3 ML VIAL NEB SCH ×2 (07:15→10:57)
[2020-07-22 07:25] LABS: BUN Creatinine Ratio 29.9 (10-20); Calcium 9.1 mg/dl (8.5-10.1); Creatinine Clr Calc Pharmacy 86.7 ml/min; Est GFR (African American) 99.4; Est GFR (Non-African American) 85.8; Magnesium 2.7 mg/dl (1.8-2.4); Potassium 4.4 mmol/L (3.5-5.1)
--- NOTE | 2020-07-22 08:21 | Hospitalist Progress Note ---
Date of Service July 22, 2020 Assessment & Plan (1) Acute respiratory failure with hypoxia: (2) COPD exacerbation: (3) Current every day smoker: This is a 69-year-old male who presents with ongoing shortness of breath, got worse since last few days. 1. COPD exacerbation. Hypoxia. ongoing smoking. Received steroids and doxycycline, nebs in the ER, continued with IV Solu-Medrol 40 t.i.d., decreased to BID DuoNebs around the clock and p.r.n., p.o. doxycycline. Monitor in the med tele. Two step home oxygen prior to discharge. Follow up with family doctor and Pulmonary. Patient will need PFTs as outpt. Will DC on doxy and prednisone Allergic rhinitis -Patient reports rhinorrhea, and also watery eyes - reports hx of allergies, at home uses flonase -We will provide Zyrtec, Flonase - cont. to monitor 2. Chest tightness, possibly from chronic obstructive pulmonary disease flare, EKG unremarkable. repeat EKG -normal sinus rhythm, anterior infarct, age undetermined, no change from previous. Troponins - negative Echocardiogram obtained -no significant valvular pathology. Left ventricle is normal in size. Left ventricular systolic function is normal. EF 50 to 55%. LV wall motion is normal. RV systolic function is normal. Left atrial size is normal. Right atrial size is normal. Monitor in the med/tele Now resolved 3. Lower extremity edema mild. echo as above Will also check lipid profile and HbA1c levels and a.m. labs. lipid panel - total cholesterol 256, LDL 197, HDL 47, triglycerides 62 Hemoglobin A1c, 6.0% Follow up as outpt 4. Tobacco abuse - counseling DVT ppx:Lovenox. DISPOSITION: telemetry Expect discharge home and follow with family doctor and pulmonology. Admission and Anticipated Discharge Date Admission Date: July 19, 2020 Subjective Patient seen in follow-up of hypoxia, patient is now on RA (down from 3 L) of oxygen, likely secondary to COPD Currently he says he feels much better and breathing much easier Reports his allergies are bothering him, but better controlled after we gave him flonase yesterday h Reports he was using inhalers of his , when he was at home Will need follow up w/ PCP and pulmonary He is inquiring about going home Will get 2 step done Denies fevers, chills, chest pain, abdominal pain nausea or vomiting Review of Systems Review of Systems: All systems reviewed & are unremarkable except as noted in HPI & below Constitutional: no fever and no chills Respiratory: + cough (improved) and + dyspnea (improved) Cardiovascular: no chest pain and no palpitations Gastrointestinal: no abdominal pain, no nausea and no vomiting Physical Exam Physical Exam: GENERAL: The patient is obese, not in acute distress. HEENT: NC/AT, No pallor, no icterus. Oral mucosa somewhat dry. NECK: No JVD. No neck masses. CARDIOVASCULAR: S1, S2 heard, irregular rate and rhythm, no murmur, no gallop. RESPIRATORY: Normal AP diameter. No accessory muscle use. currently on RA, somewhat diminished breath sounds, no wheezing (improved), no crackles ABDOMEN: Soft, bowel sounds present, obese, nontender. No distention. NEURO: Alert and oriented x3, no facial asymmetry, speech fluent, moves all 4 extremities EXTREMITIES: Mild pedal edema present, no erythema seen. SKIN: warm, dry, no rashes Results & Data Results & Data ([facility]) Vital Signs (Past 12 Hours) Vital Signs Temp Pulse Pulse Resp BP Pulse Ox 07/22/20 07:16 77 20 92 07/22/20 07:01 36.5 C 76 18 169/75 H 95 07/22/20 04:00 36.5 C 81 20 132/82 91 07/22/20 00:33 88 07/21/20 22:42 36.4 C L 87 18 150/89 H 94 Laboratory Results 07/22/20 07/22/20 07/21/20 Range/Units 06:33 06:33 08:04 WBC 17.70 H (4.8-10.8) K/uL RBC 5.21 (4.7-6.1) M/uL Hgb 16.1 (14.0-18.0) g/dL Hct 47.6 (42-52) % MCV 91.4 (80-100) fL MCH 30.9 (25-34) pg MCHC 33.8 (32-36) g/dL RDW Std Deviation 48.8 H (36.4-46.3) fL RDW Coeff of Lai 14.4 (11.5-14.5) % Plt Count 263 (130-400) K/uL MPV 9.7 (7.4-10.4) fL Sodium 135 L 137 (136-145) mmol/L Potassium 4.4 4.3 (3.5-5.1) mmol/L Chloride 105 103 (98-107) mmol/L Carbon Dioxide 27 29 (21-32) mmol/L Anion Gap 3.0 5.0 (3-11) BUN 27 H 27 H (7-18) mg/dl Creatinine 0.92 0.99 (0.6-1.4) mg/dl Est Cr Clr Drug Dosing 86.7 80.9 ml/min Est GFR ( Amer) 99.4 91.0 Est GFR (Non-Af Amer) 85.8 78.5 BUN/Creatinine Ratio 29.9 H 26.8 H (10-20) Glucose 115 H 111 H (70-99) mg/dl Calcium 9.1 9.2 (8.5-10.1) mg/dl Phosphorus 3.0 3.1 (2.5-4.9) mg/dl Magnesium 2.7 H 2.7 H (1.8-2.4) mg/dl Specimen Hemolysis 07/21/20 Range/Units 08:04 WBC 21.68 H (4.8-10.8) K/uL RBC 4.91 (4.7-6.1) M/uL Hgb 15.5 (14.0-18.0) g/dL Hct 44.9 (42-52) % MCV 91.4 (80-100) fL MCH 31.6 (25-34) pg MCHC 34.5 (32-36) g/dL RDW Std Deviation 48.5 H (36.4-46.3) fL RDW Coeff of Lai 14.4 (11.5-14.5) % Plt Count 314 (130-400) K/uL MPV 10.0 (7.4-10.4) fL Sodium (136-145) mmol/L Potassium (3.5-5.1) mmol/L Chloride (98-107) mmol/L Carbon Dioxide (21-32) mmol/L Anion Gap (3-11) BUN (7-18) mg/dl Creatinine (0.6-1.4) mg/dl Est Cr Clr Drug Dosing ml/min Est GFR ( Amer) Est GFR (Non-Af Amer) BUN/Creatinine Ratio (10-20) Glucose (70-99) mg/dl Calcium (8.5-10.1) mg/dl Phosphorus (2.5-4.9) mg/dl Magnesium (1.8-2.4) mg/dl Specimen Hemolysis Medications Administered Current Inpatient Medications Acetaminophen (Acetaminophen 325 Mg Tab) 650 mg PO Q4H PRN PRN Reason: Pain or Fever Stop: 08/18/20 22:36 Albuterol (Albut/Ipratrop 3mg/0.5mg Neb 3 Ml Vial) 3 ml NEB QIDR [facility] Stop: 08/19/20 06:59 Last Admin: 07/22/20 07:15 Dose: 3 ml Documented by: Albuterol (Albut/Ipratrop 3mg/0.5mg Neb 3 Ml Vial) 3 ml NEB Q4R PRN PRN Reason: Shortness Of Breath Or Wheezing Stop: 08/18/20 22:36 Last Admin: 07/21/20 03:35 Dose: 3 ml Documented by: Cetirizine HCl (Cetirizine Hcl 10 Mg Tablet) 10 mg PO QAM [facility] Stop: 08/20/20 13:44 Last Admin: 07/21/20 14:31 Dose: 10 mg Documented by: Doxycycline Hyclate (Doxycycline Hyclate 100 Mg Cap) 100 mg PO BID [facility] Stop: 07/27/20 08:59 Last Admin: 07/21/20 20:31 Dose: 100 mg Documented by: Enoxaparin Sodium (Enoxaparin Inj 40 Mg/0.4 Ml Syr) 40 mg SQ Q24H [facility] Stop: 08/19/20 08:59 Last Admin: 07/21/20 08:52 Dose: 40 mg Documented by: Famotidine (Famotidine 20 Mg Tab) 20 mg PO QAM [facility] Stop: 08/20/20 13:44 Last Admin: 07/21/20 14:31 Dose: 20 mg Documented by: Fluticasone Propionate (Fluticasone Propionate Na Spr 16 Gm Btl) 1 sprays STEPHANIE BID [facility] Stop: 08/20/20 20:59 Last Admin: 07/21/20 20:31 Dose: 1 sprays Documented by: Guaifenesin/Codeine Phosphate (Guaifenesin/Codeine 100mg/10mg 5ml Udc) 5 ml PO Q6H PRN PRN Reason: Cough Stop: 08/18/20 22:36 Last Admin: 07/21/20 11:59 Dose: 5 ml Documented by: Methylprednisolone 40 mg/ (Syringe) 0.64 mls @ 1.5 mls/min IV BID [facility] Stop: 08/20/20 20:59 Last Admin: 07/21/20 20:31 Dose: 1.5 mls/min Documented by: Miscellaneous (Remove Nicoderm Patch) 1 ea N/A DAILY@0859 [facility] Stop: 08/19/20 08:58 Last Admin: 07/21/20 08:52 Dose: 1 ea Documented by: Nicotine (Nicotine 21 Mg/24 Hr Tdsy) 21 mg TD DAILY [facility] Stop: 08/18/20 23:09 Last Admin: 07/21/20 08:52 Dose: 21 mg Documented by: Nitroglycerin (Nitroglycerin Sl 0.4 Mg/Tab Tab) 0.4 mg SL UD PRN PRN Reason: Chest Pain Stop: 08/18/20 22:36 Pantoprazole Sodium (Pantoprazole 40 Mg Tab) 40 mg PO QAM [facility] Stop: 08/20/20 12:29 Last Admin: 07/21/20 14:31 Dose: 40 mg Documented by: Polyethylene Glycol (Polyethylene (Miralax) 17 Gm Pack) 17 gm PO DAILY PRN PRN Reason: Constipation Stop: 08/18/20 22:36
[2020-07-22] MEDS: NICOTINE 21 MG/24 HR TDSY TD SCH (09:09)
[2020-07-22] MEDS: methylPREDNISolone 40 MG in SYRINGE 0 ML IV SCH (09:10)
[2020-07-22] MEDS: ENOXAPARIN INJ 40 MG/0.4 ML SYR SQ SCH (09:11)
[2020-07-22] MEDS: FLUTICASONE PROPIONATE NA SPR 16 GM BTL NAE SCH (09:11)
[2020-07-22] MEDS: PANTOprazole 40 MG TAB PO SCH (09:11)
[2020-07-22] MEDS: DOXYCYCLINE HYCLATE 100 MG CAP PO SCH (09:12)
--- NOTE | 2020-07-22 09:45 | Discharge Summary ---
Date of Service July 22, 2020 Admission HPI Per Admitting Provider A 69-year-old male with no significant past medical history, did not go to doctors for the last 40 years as per the patient, who just had a teleconference with physician for his shortness of breath in last January and at that time he was prescribed prednisone and antibiotic, now comes because of shortness of breath, cough going on for the last 2-3 weeks. The patient states since last 2-3 years, he is having trouble with his breathing. 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 He also smokes 1 pack of cigarettes a day for the last 40 years. The cough and shortness of breath got worse since last 2-3 weeks and was feeling very short of breath, coughing, bringing up some whitish phlegm. Denies any fever, chills. Has some chest tightness. No headache, no blurred vision, no earache. Had some runny nose from his sinuses. No sore throat, no loss of sense of smell or taste. Appetite is okay. No dysphagia, no nausea, no abdominal pain, no diarrhea or constipation, no blood in stools or black stools. Normal bladder movements. No hematuria. No rash. He was saturating 83% when he came in, currently saturating at 98% on 4 liters. His is in the room and says for the last several days he is using his 's inhalers and nebs at home. Admission Exam Per Admitting Provider GENERAL: The patient is obese, not in acute distress. VITAL SIGNS: Temperature 36.8, pulse 79, respiratory rate 13, blood pressure 114/99, oxygen 98% on 4 liters, was 83% on room air. HEENT: No pallor, no icterus. Oral mucosa somewhat dry. NECK: No JVD. No neck masses. CARDIOVASCULAR: S1, S2 heard, irregular rate and rhythm, no murmur, no gallop. RESPIRATORY SYSTEM: Normal AP diameter. No accessory muscle use. Diminished breath sounds. No wheezing, no crackles. ABDOMEN: Soft, bowel sounds present, nontender. No distention. CENTRAL NERVOUS SYSTEM: Cranial nerves II-XII grossly intact. Nonfocal. EXTREMITIES: Mild pedal edema present, no erythema seen. Principal Diagnosis Acute respiratory failure with hypoxia, likely secondary to COPD exacerbation Discharge Exam GENERAL: The patient is obese, not in acute distress. HEENT: NC/AT, No pallor, no icterus. Oral mucosa somewhat dry. NECK: No JVD. No neck masses. CARDIOVASCULAR: S1, S2 heard, irregular rate and rhythm, no murmur, no gallop. RESPIRATORY: Normal AP diameter. No accessory muscle use. currently on RA, somewhat diminished breath sounds, no wheezing (improved), no crackles ABDOMEN: Soft, bowel sounds present, obese, nontender. No distention. NEURO: Alert and oriented x3, no facial asymmetry, speech fluent, moves all 4 extremities EXTREMITIES: Mild pedal edema present, no erythema seen. SKIN: warm, dry, no rashes Discharge Data Allergies Allergy/AdvReac Type Severity Reaction Status Date / Time No Known Allergies Allergy Verified 07/19/20 17:58 Consultations 07/19/20 19:30 ED Decision to Admit Stat Hospital Course (1) Acute respiratory failure with hypoxia: (2) COPD exacerbation: (3) Current every day smoker: This is a 69-year-old male who presents with ongoing shortness of breath, got worse since last few days. 1. COPD exacerbation. Hypoxia. ongoing smoking. Received steroids and doxycycline, nebs in the ER, continued with IV Solu-Medrol 40 t.i.d., decreased to BID DuoNebs around the clock and p.r.n., p.o. doxycycline. Monitor in the med tele. Two step home oxygen prior to discharge. - Patient to be on 3 L via nasal cannula with ambulation, no oxygen needed at rest. Follow up with family doctor and Pulmonary medicine. Patient will need PFTs as outpt. Will DC on doxy and prednisone Allergic rhinitis -Patient reports rhinorrhea, and also watery eyes - reports hx of allergies, at home uses flonase -We will provide Zyrtec, Flonase - cont. to monitor - symptoms now improved 2. Chest tightness, possibly from chronic obstructive pulmonary disease flare, EKG unremarkable. repeat EKG -normal sinus rhythm, anterior infarct, age undetermined, no change from previous. Troponins - negative Echocardiogram obtained -no significant valvular pathology. Left ventricle is normal in size. Left ventricular systolic function is normal. EF 50 to 55%. LV wall motion is normal. RV systolic function is normal. Left atrial size is normal. Right atrial size is normal. Monitor in the med/tele Now resolved 3. Lower extremity edema mild. echo as above Will also check lipid profile and HbA1c levels and a.m. labs. lipid panel - total cholesterol 256, LDL 197, HDL 47, triglycerides 62 Hemoglobin A1c, 6.0% Follow up as outpt 4. Tobacco abuse - counseling DVT ppx:Lovenox. DISPOSITION: Discharge home and follow with family doctor and pulmonology. Total Time Total Time Spent Total Time Spent (In Minutes): 40 Total Time Includes: Examination of the Patient, Discharge Planning and Medication Reconciliation Discharge Plan Discharge Items Patient Disposition: Home - Self-Care Reason For Visit: SOB Discharge Diagnosis: Acute respiratory failure with hypoxia, likely secondary to COPD exacerbation Activity: Per Instructions section Non-emergency contact: Primary Care Provider and Wash Helper Call non-emergency contact if: you have any medication questions and your symptoms worsen Follow-up/Referrals: Srinath Samuels MD [Outside Practitioners] - (Date & Time 07/25/2020 11:00 AM Provider Srinath Samuels MD Department Family [facility] ) Diet: Heart Healthy Addtl Attending Provider Instructions: Follow up with your primary care doctor, the appointment scheduled for you for July 25. You will also need to follow-up with a sales and marketing intern and have pulmonary tests done. Take prednisone for next several days as prescribed, also take doxycycline as prescribed. It is recommended you take pantoprazole, for stomach mucosa protect ion, while you are on steroids/prednisone. Use albuterol inhaler as needed as prescribed. You will likely need other inhalers in the future, therefore you need to follow-up with family doctor and a sales and marketing intern. Use supplemental oxygen, 3L via nasal cannula with ambulation. Pending Studies at Discharge: No Stand-Alone Forms: My [employer], Smoking Cessation Medications and DC Order Prescriptions: New doxycycline hyclate 100 mg Capsule 100 mg PO BID 3 Days Qty: 6 RF: 0 albuterol sulfate 90 mcg/actuation HFA aerosol inhaler 1 inh inhalation Q4H PRN (Reason: shortness of breath or wheezing) Qty: 8.5 RF: 0 prednisone 20 mg tablet 40 mg PO DAILY 4 Days Qty: 8 RF: 0 pantoprazole 40 mg Tablet,Delayed Release (Dr/Ec) 40 mg PO QAM Qty: 7 RF: 0 Continued fluticasone propionate [Flonase] 50 mcg/actuation [place],Suspension 1 spray INTRANASAL DAILY RF: 0 levocetirizine [Xyzal] 5 mg Tablet 5 mg PO DAILY RF: 0 guaifenesin [Mucinex] 600 mg Tablet Extended Release 12hr 600 mg PO DIRECTED PRN (Reason: Congestion) RF: 0 Discontinued albuterol sulfate 2.5 mg /3 mL (0.083 %) Solution For Nebulization 2.5 mg INHALATION DIRECTED PRN (Reason: Shortness Of Breath) RF: 0 Primatene Mist 0.22 mg/actuation Aerosol 1 puff INHALATION DIRECTED PRN (Reason: Shortness Of Breath) RF: 0 Discharge Orders: Discharge Order (Routine); Ordered 07/22/20 Ordered By: Haseeb Torres/Other Patient Handouts: 5 Steps for Eating Healthier, A1C Admission Data Admit Date/Time: 07/19/20 20:32 Attending Provider: Haseeb Pinon Admit Provider: Dinesh Biswas Primary Care Provider: Sam Rolon Other Providers: Dinesh Biswas
[2020-07-22] MEDS: FAMOTIDINE 20 MG TAB PO SCH (10:13)
[2020-07-22] MEDS: CETIRIZINE HCL 10 MG TABLET PO SCH (10:13)
== END 2020-07-22 13:54 | disposition home or self-care (01) | DRG 189 ==
LOC: ED 17:00 → 2N 20:32